=== PATIENT | female | born 1930 | race Caucasian/White ===

== ENCOUNTER → 2016-10-27 | Outpatient (CLI) | payer MEDICARE, OTHER ==
[~2016-10-27] MED LIST: AGGRENOX CAPSUL1 CAP PO; AGGRENOX ER 251 CER PO; ALEVE 220MG220 MG; ALEVE 220MG220 MG PO; ASPIRIN 81M81 MG/TA2 PO; ATARAX 25MG25 MG/TAB PO; BENADRYL25 M2 PO; BETAPACE 80MG80 MG PO; BETAPACE AF120 MG PO; BUMEX 1MG TA1 MG/TA1 PO; CARDI-OMEGA1000 MG PO; CEPHALEXIN500 M1 PO; CETIRIZINE; COSOPT 2%-0.5%10 ML OU; COSOPT EYE DROPS5 ML OP; COUMADIN 2MG2 MG/TAB PO; COUMADIN 3MG3 MG/TAB PO; COUMADIN 5MG5 MG/TAB PO; DEMADEX 20MG20 M1 PO; DITROPAN 5MG TAB5 MG PO; FLONASE NASAL S16 GM NS; FUROSEMIDE20 MG PO; GABAPENTIN300 M1 PO; HCTZ; IMDUR 30MG30 MG/TAB PO; ISOSORBIDE30 MG PO; LISINOPRIL; LOPRESSOR 225 MG/TAB PO; LOVENOX 8080 MG/0.8 SQ; MULTAQ400 MG PO; NEURONTIN300 MG/CAP PO; NITROQUICK0.4 MG SL; NORCO 325 MG-51 TAB PO; NORVASC 5MG5 MG/TAB PO; NORVASC2.5 MG PO; NTG 0.4; PHENERGAN 25 TA25 MG PO; PRILOSEC 20MG20 MG PO; PRINIVIL40 MG PO; SYNTHROID0.1 MG/TAB PO; SYNTHROID0.112 MG/T PO; SYNTHROID0.125 MG/T PO; TIKOSYN0.25 MG PO; TIROSINT75 MC1 PO; TYLENOL 325MG325 MG PO; WARFARIN; XANAX 0.5MG0.5 MG PO; ZIAC 5 MG-6.251 TAB PO; ZOCOR 20MG20 MG PO; ZOCOR 40MG40 MG PO; ZOCOR80 MG PO; ZYRTEC 10MG10 MG PO; [UNRECOGNIZED DRUG - OTHER]
== END ==
LOC: COL.VAS 14:21
DX: R60.0 Localized edema (principal)